=== PATIENT | male | born 1945 | race Caucasian/White ===

== ENCOUNTER 2016-11-19 07:08 | Observation (INO) ==
--- NOTE | 2016-11-19 07:31 | Emergency Department Note ---
Disposition Clinical Impression: Chest pain, rule out acute myocardial infarction Disposition: Admitted As Inpatient Condition: Fair Referrals: Lazaro Pérez DO [Primary Care Provider] - Forms: ED Satisfaction Letter General Adult HPI - General Chief complaint: ED Dizziness Stated complaint: General, indegestion Time Seen by Provider: 11/19/16 07:15 Source: patient Limitations: no limitations - History of Present Illness HPI Narrative: 71-year-old male with history of coronary artery disease status post PCI in 2009 presents with chief complaint of indigestion of 2-3 days. Patient states that he is also had dizziness 3-4 times in the last week which is unusual for him. Patient states she becomes dizzy when standing up from a sitting position. He denies nausea, vomiting, diaphoresis, change in bowel or bladder function, shortness of breath, syncope. Furthermore he has a history of inferior WA in 2009 with placement of 4 stents in the RCA. He also had 30-40% stenosis in other coronary vessels. Patient takes aspirin carvedilol, metoprolol, and statin daily. During patient's last ACS his initial complaint was indigestion, and patient is worried that he might be having similar symptoms today. Pain Scale: 0 - Related Data Home Medications Medication Instructions Recorded Confirmed Aspirin [Lo-Dose Aspirin EC] 81 mg PO DAILY 11/19/16 11/19/16 Atorvastatin [Lipitor] 40 mg PO DAILY 11/19/16 11/19/16 Clopidogrel [Plavix] 75 mg PO DAILY 11/19/16 11/19/16 LORazepam [Ativan] 1 mg PO TID PRN 11/19/16 11/19/16 Metoprolol [Lopressor] 25 mg PO BID 11/19/16 11/19/16 Mometasone Furoate [Elocon] 1 appl TP BID 11/19/16 11/19/16 Oxycodone HCl/Acetaminophen 1 tab PO Q6H PRN 11/19/16 11/19/16 [Percocet 5-325 mg Tablet] PredniSONE [Deltasone] See Taper PO AD 11/19/16 11/19/16 Allergies Allergy/AdvReac Type Severity Reaction Status Date / Time No Known Allergies Allergy Verified 11/19/16 07:13 Review of Systems: Constitutional: Denies fever, chills HEENT: Denies headache, vision changes, neck pain, sore throat, rhinorrhea Heart: Denies chest pain palpitations Lungs: Denies shortness of breath cough Abdomen: Denies abdominal pain, reports indigestion, bloating. Denies nausea vomiting diarrhea Extremities: Denies swelling, pain Neuro: Denies numbness, and tingling Past Medical History - Past Medical History Medical history: Reports: hyperlipidemia, hypertension, myocardial infarction - Social History Smoking Status: Current every day smoker Alcohol use: Reports: none Drug use: Reports: none Physical Exam General: Alert and oriented to place time and situation. Without distress HEENT: Head atraumatic, normocephalic, EOMI, PERRLA, neck nontender to palpation , absent Lymphadenopathy, Moist Mucous Membranes, Heart: Regular rate and rhythm with no murmur Lungs: Upper lobe wheezing bilaterally. Abdomen: Soft nontender, nondistended positive bowel sounds Extremities: Absent pedal edema, Vascular: Pedal and radialpulses 2 out of 4 - General Limitations: no limitations General appearance: alert, in no apparent distress Course Course Narrative: Will obtain EKG, troponin, basic labs, chest x-ray. Orthostatic vitals. - Reevaluation(s) Reevaluation #1: Orthostatic vitals: Laying down HR 74 BP 164/80 Standing up HR 80 BP 166/74 Time: 07:48 Reevaluation #2: CBC, BMP within normal limits. Troponin negative. EKG sinus rhythm. Chest x- ray is negative for acute changes. Time: 08:33 Reevaluation #3: Decision was made to admit patient for chest pain rule out. We will contact hospitalist. Time: 09:40 Vital Signs Temperature 98.4 F 11/19/16 07:09 Pulse Rate 76 11/19/16 07:09 Respiratory Rate 18 11/19/16 07:09 Blood Pressure 160/88 11/19/16 07:09 O2 Sat by Pulse Oximetry 96 11/19/16 07:09 Temperature 98.4 F 11/19/16 07:09 Pulse Rate 66 11/19/16 09:09 Respiratory Rate 16 11/19/16 09:09 Blood Pressure 147/74 11/19/16 09:09 O2 Sat by Pulse Oximetry 95 11/19/16 09:09 Oxygen Delivery Oxygen Delivery Room Air Medical Decision Making - MDM Narrative Medical decision making narrative: Patient's past history of coronary artery disease, smoking, myocardial infarction he will be admitted for chest pain rule out. - Medical Records Medical records reviewed: Yes I reviewed the patient's medical records. - Lab Data Lab results reviewed: Yes I reviewed the patient's lab results. Result diagrams: 11/19/16 07:57 11/19/16 07:57 Lab Results 11/19/16 11/19/16 11/19/16 Range/Units 07:57 07:57 07:57 WBC 12.3 H (4.3-11.1) K/mcL RBC 5.08 (4.19-5.50) M/mcL Hgb 14.7 (12.9-16.9) g/dL Hct 44.8 (37.5-50.1) % MCV 88.2 (83.0-100.0) fL MCH 28.9 (28.0-33.3) pg MCHC 32.8 (31.6-35.5) g/dL RDW 13.9 (11.5-14.5) % Plt Count 213 (140-400) K/mcL MPV 10.0 (9.4-12.4) fL Immature Gran % 0.3 (0-4) % Seg Neutrophils % 72.5 % Lymphocytes % 16.5 % Monocytes % 8.4 % Eosinophils % 1.9 % Basophils % 0.4 % Neutrophils # 8.9 (1.6-8.9) K/mcL Lymphocytes # 2.0 (0.6-4.6) K/mcL Monocytes # 1.0 (0.0-1.3) K/mcL Eosinophils # 0.2 (0.0-0.6) K/mcL Basophils # 0.1 (0.0-0.2) K/mcL Immature Plt Fraction 5.6 (1.1-6.1) % Sodium 140 (136-145) mEq/L Potassium 4.3 (3.5-4.5) mEq/L Chloride 108 (98-109) mEq/L Carbon Dioxide 24 (19-29) mEq/L BUN 16 (8-26) mg/dL Creatinine 1.00 (0.72-1.25) mg/dL Est GFR ( Amer) > 60 (> 60) Est GFR (Non-Af Amer) > 60 (> 60) BUN/Creatinine Ratio 16 (6-26) Glucose 117 H (70-99) mg/dL Calculated Osmolality 292 (280-300) Calcium 9.6 (8.6-10.8) mg/dL Troponin I 0.00 (0-0.03) ng/mL - Radiology Data Radiology results reviewed: Yes I reviewed the patient's radiology results. - EKG Data EKG #1 EKG results narrative: Sinus with rate 72, no ST-T wave changes, Q-wave in lead 3, 2 and aVF. Sinus rhythm with old inferior WA. Attestation Statement - Attestation Attestation: I performed a history and physical examination of the patient and discussed his management with the resident. I reviewed the residents note and agree with the documented findings and plan of care. This is a 71-year-old male who was planning on a long drive to [place] today but decided to come to the hospital because he had some symptoms that he wanted checked out first. He described "dizziness ". He states he turned a bit too quickly to get out of bed and it came on and then it went away. So it sounds like this was very transient. It sounds like this is happened to him several times over the past week. He also describes what he calls "indigestion ". However he is concerned because he has a history of 4 stents placed approximately 7 years ago. He has not had a subsequent heart catheterization and no visits for chest pain. It is not clear whether the symptoms are exertional. His first troponin has come back negative. I see no new ischemic changes on his EKG. EKG interpreted by me showing sinus rhythm at a rate of 72, QRS of 111, QTC of 406, axis of 15. I discussed with the patient that in order to fully rule him out from a cardiac standpoint he will need a full set of cardiac enzymes. He has agreed to be admitted for this and this has been arranged to the hospitalist service. Lungs are clear, heart regular. See the resident note for further details this patient's care.
[2016-11-19 08:06] LABS: Hematocrit 44.8 % (37.5-50.1); Hemoglobin 14.7 g/dL (12.9-16.9); Immature Platelets 5.6 % (1.1-6.1); Mean Corpuscular HGB Conc 32.8 g/dL (31.6-35.5); Mean Corpuscular Hemoglobin 28.9 pg (28.0-33.3); Mean Corpuscular Volume 88.2 fL (83.0-100.0); Platelet Count 213 K/mcL (140-400); Red Blood Count 5.08 M/mcL (4.19-5.50); Red Cell Distribution Width 13.9 % (11.5-14.5); Segmented Neutrophils % 72.5 %
[2016-11-19 08:07] LABS: Basophils # 0.1 K/mcL (0.0-0.2); Basophils % 0.4 %; Eosinophils # 0.2 K/mcL (0.0-0.6); Eosinophils % 1.9 %; Immature Granulocytes % 0.3 % (0-4); Lymphocytes % 16.5 %; Monocytes % 8.4 %; Neutrophils # 8.9 K/mcL (1.6-8.9)
[2016-11-19 08:18] LABS: BUN/Creatinine Ratio 16 (6-26); Blood Urea Nitrogen 16 mg/dL (8-26); Calcium 9.6 mg/dL (8.6-10.8); Carbon Dioxide 24 mEq/L (19-29); Chloride 108 mEq/L (98-109); Glucose 117 mg/dL (70-99); Osmolality,Calculated 292 (280-300); Potassium 4.3 mEq/L (3.5-4.5); Sodium 140 mEq/L (136-145); eGFR For African Americans > 60 (> 60); eGFR For Non-African Americans > 60 (> 60)
[2016-11-19] MEDS ORDERED: Naloxone 0.4 MG/ML INJ IVP PRN (10:27)
[2016-11-19] MEDS ORDERED: Acetaminophen 325 MG TABLET PO PRN (10:27)
--- NOTE | 2016-11-19 10:43 | Internal Med History&Physical ---
Date of Encounter: 11/19/16 Time of Encounter: 10:00 Assessment and Plan (1) Chest pain Current visit: Yes Status: Acute Patient with the complaints of epigastric discomfort/atypical chest pain. Given his prior episode of similar complaints associated with his diagnosis of coronary artery disease requiring stenting, we will place patient in the hospital for observation. Trend troponins. Monitor with telemetry. Check lipid profile and A1c. We will treat symptomatically. Pain could also be related to gastritis . We will treat with PPI. If troponins are negative, plan for stress test in the morning. Qualifiers: Chest pain type: other chest pain Qualified Code(s): R07.89 - Other chest pain; R07.8 - Other chest pain (2) Essential hypertension Current visit: Yes Status: Chronic Uncontrolled. Monitor blood pressure. Resume home medications. (3) Hyperlipidemia Current visit: Yes Status: Chronic Continue statin. Check lipid profile. Qualifiers: Hyperlipidemia type: mixed hyperlipidemia Qualified Code(s): E78.2 - Mixed hyperlipidemia (4) Coronary artery disease Current visit: Yes Status: Chronic Continue aspirin, Plavix and beta carmela. Patient had 3 stents placed to the right coronary artery in 2009. At that time he also had 30% to 40% stenosis and left anterior descending and left circumflex artery with an EF of 50-60%. Qualifiers: Coronary Disease-Associated Artery/Lesion type: [place] artery [place] vs. transplanted heart: [place] heart Associated angina: with other forms of angina Qualified Code(s): I25.118 - Atherosclerotic heart disease of [place] coronary artery with other forms of angina pectoris Internal Medicine - H&P: HPI Chief complaint: Indigestion Admitted From: Emergency Dept Plans for Post Hospital Care: Home History of present illness: Mr. Stein is a 71 year old male patient with a history of coronary artery disease status post ACI with stents in 2009 presented to the ER with complaints of indigestion. His symptoms have been going on for about 2-3 days now. He has been otherwise healthy. The main concern is that he should not had indigestion since his last stents and during that time he had presented with complaint of indigestion and was diagnosed with coronary artery disease then. He denies any palpitations. He denies any relation of the symptoms to activity or food. He sometimes feels pain radiating down his left arm. No nausea or vomiting. He has recently been placed on a tapering course of steroids for back pain. No shortness of breath or pedal edema. No diarrhea Past Med Surg Social Fam HX - Past Medical History Attestation: Yes The following information was validated with the patient. Source: patient, old records reviewed Medical history: hyperlipidemia, hypertension, myocardial infarction - Social History Smoking Status: Current every day smoker Alcohol use: none Drug use: none - Additional Family History Additional family history: Reviewed and found to be noncontributory at this time Internal Medicine - H&P: Meds Aspirin [Lo-Dose Aspirin EC] 81 mg PO DAILY 11/19/16 [History] Atorvastatin [Lipitor] 40 mg PO DAILY 11/19/16 [History] Clopidogrel [Plavix] 75 mg PO DAILY 11/19/16 [History] LORazepam [Ativan] 1 mg PO TID PRN 11/19/16 [History] Metoprolol [Lopressor] 25 mg PO BID 11/19/16 [History] Mometasone Furoate [Elocon] 1 appl TP BID 11/19/16 [History] Oxycodone HCl/Acetaminophen [Percocet 5-325 mg Tablet] 1 tab PO Q6H PRN [History] PredniSONE [Deltasone] See Taper PO AD 11/19/16 [History] Allergies No Known Allergies Allergy (Verified 11/19/16 07:13) All Systems PM: A 10-system review of systems was performed and is negative for pertinent findings except as documented above in the HPI. - Constitutional Constitutional: no chills, no fever(s), no night sweats - EENT Eyes: no change in vision, no discharge, no pain, no photophobia Ears: no ear discharge, no ear pain, no tinnitus Nose, mouth and throat: no dysphagia, no nasal discharge, no neck pain, no sore throat - Cardiovascular Cardiovascular ROS IM: no chest pain, no diaphoresis, no dyspnea, no lightheadedness, no palpitations, no syncope - Respiratory Respiratory: no cough, no dyspnea, no wheezing, no excessive phlegm production - Gastrointestinal Gastrointestinal: dyspepsia, no abdominal pain, no diarrhea, no hematemesis, no hematochezia, no melena, no nausea, no vomiting - Musculoskeletal Musculoskeletal ROS IM: no numbness, no tingling - Integumentary Integumentary IM: no rash, no unusual bruising - Neurological Neurological ROS: no confusion, no convulsions, no focal weakness, no numbness, no tingling, no tremor(s) - Hematologic/Lymphatic Hematologic/Lymphatic: no easy bruising - Constitutional Vitals: Temp Pulse Resp BP Pulse Ox 98.4 F 66 16 147/74 95 11/19/16 07:09 11/19/16 09:09 11/19/16 09:09 11/19/16 09:09 11/19/16 09:09 General appearance: Present: cooperative, A&O X 3, pleasant, answers questions appropriately - Neck Neck exam general surgery: Present: supple, trachea midline. Absent: lymphadenopathy - Respiratory Respiratory exam: Present: CTAB. Absent: accessory muscle use, rales, rhonchi, wheezes - Cardiovascular Cardiovascular exam: Present: RRR, +S1, +S2. Absent: diastolic murmur, gallop, rubs, systolic murmur - GI/Abdominal GI/Abdominal exam: Present: normal bowel sounds, soft, no peritoneal signs. Absent: distended, tenderness - Extremities Exam Extremities exam: Present: warm, radial pulses palpable and symetrical. Absent : calf tenderness, cyanotic, pedal edema - Neurological Exam Neurological exam: Present: CN II-XII intact, oriented X3, no focal deficits. Absent: facial droop, speech deficit - Skin Skin exam: Present: dry, intact Internal Med - H&P Results - Labs CBC & Chem 7: 11/19/16 07:57 11/19/16 07:57 Labs: Short CBC 11/19/16 Range/Units 07:57 WBC 12.3 H (4.3-11.1) K/mcL Hgb 14.7 (12.9-16.9) g/dL Hct 44.8 (37.5-50.1) % Plt Count 213 (140-400) K/mcL Neutrophils # 8.9 (1.6-8.9) K/mcL BMP 11/19/16 07:57 Sodium 140 Potassium 4.3 Chloride 108 Carbon Dioxide 24 BUN 16 Creatinine 1.00 Glucose 117 H Calcium 9.6 Cardiac Enzymes 11/19/16 Range/Units 07:57 Troponin I 0.00 (0-0.03) ng/mL - EKG Data -: EKG Interpreted by Myself EKG shows normal: sinus rhythm - EKG Data EKG comments: 11/19/16 10:44 Inferior Q waves without any acute ST segment changes 11/19/16 10:44 - Impressions ITS Impressions Chest X-Ray 11/19/16 07:28 IMPRESSION: No acute cardiopulmonary disease. D/ / 11/19/2016 08:21:26 Riki Mckeon MD / vinod Interpreting Provider: Riki Mckeon MD - Attending Attestation This document has been at least partially created by [employer] recognition technology by Dr. Romero. Errors in grammar, wording or other phrases may exist. If errors are found after the documentation is signed, they will be addressed individually in the addendum section of this document when appropriate.
[2016-11-19] MEDS ORDERED: *HR* LORazepam 1 MG TABLET PO PRN (10:50)
[2016-11-19] MEDS ORDERED: *HR* OxyCODONE/APAP 5/325 TABLET PO PRN (10:50)
[2016-11-20 04:30] LABS: Hemoglobin A1C 5.8 %
[2016-11-20 04:38] LABS: Chol/HDL Ratio 3.9 (0-4.9)
--- NOTE | 2016-11-20 06:40 | Electrocardiograph Report ---
[facility] Test Date: 2016-11-19 Pat Name: Jesus Stein Department: 104 Room: 3B48 Gender: M Hydrologist: : 1945 Requested By: Tio Bejarano Order Number: [id number] Reading MD: Kolton Damico DO Measurements Intervals [place] Rate: 72 P: 55 TX: 194 QRS: 15 QRSD: 111 T: 36 QT: 382 QTc: 406 Interpretive Statements SINUS RHYTHM MODERATE INTRAVENTRICULAR CONDUCTION DELAY Electronically Signed On 11-20-2016 6:38:44 EDT by Kolton Damico DO
[2016-11-20] MEDS ORDERED: Regadenoson 0.4 MG/5 ML SYRINGE IVP ONE (07:07)
[2016-11-20 07:14] VITALS: BP 141/87
[2016-11-20] MEDS ORDERED: Aspirin Enteric Coated 81 MG Tablet PO SCH (09:00)
--- NOTE | 2016-11-20 10:13 | Nuclear Medicine Stress Report ---
Low Level Regadenoson Name: Jesus Stein Date of Study: 11/20/2016 Date: 1945 Ht: 74.0 in Medical Record#: [id number] Age: 71 Wt: 195.0 lb Gender: Male Order #: [id number] Location: [facility] Room: [facility] Supervising Provider: Jyocelyn Sandoval CNP Reading Physician: Arben Britt DO, FAC, [facility] Ordering Physician: Juan Manuel Romero MD Primary Care Physician: Farhan Pérez DO Stress Technologist: Kari Grant RRT,CPFT Cardiac Rn: Cresencio Mackenzie Indications: Coronary Artery Disease, Chest Pain Impression: Low level exercise/ pharmacologic stress ECG is negative for ischemia at level of heart rate achieved. Gated EF = 67%. Medium sized, mild intensity, fixed basal to mid inferior and inferolateral defect. Wall motion appears normal. These findings are suggestive of artifact. Perfusion imaging was negative for ischemia. History: Hypertension Hypercholesteremia History of Smoking Prior PCI Stress Test Summary: Stress Test Type: Low level pharmacologic Regadenoson 0.4mg/5ml given IV Baseline Information: Initial Heart Rate: 95 Blood Pressure: 112/62 Stress Information: Stress Time: min 00 sec Test Terminated Due to (primary): As per protocol Maximum Blood Pressure: 140/60 Maximum Heart Rate: 115 Percent Maximum Heart Rate Achieved: 76 Double Product: [id number] METS Reached: 2.1 Symptoms: Shortness of breath Nuclear Summary: SPECT myocardial perfusion imaging using Tc99m Sestamibi given intravenously was performed at rest and following cardiac stress testing. The resting images were obtained following initial dose of 10.7 mCi. Following stress an additional dose of 32.7 mCi was given at peak exercise or 30 seconds post regadenoson infusion. Medication Given: Time Medication Dose Units Route Findings: Stress Note * Resting ECG demonstrated normal sinus rhythm. * No baseline arrhythmias were noted. * Low level exercise/ pharmacologic stress ECG is negative for ischemia at level of heart rate achieved. * No chest pain or arrhythmias during stress. Hemodynamic responses * Normal hemodynamic responses to low level exercise plus pharmacologic stress. Study Quality * Study quality is average. Gated EF % * Gated EF = 67%. Left Ventricle * The left ventricle is not dilated. * LVEDV = 83 mL. NORMALS * Normal wall motion. Inferior Perfusion Rest * The basal to mid inferior and inferolateral segments show a mild reduction in perfusion. Inferior Perfusion Stress * The basal to mid inferior and inferolateral segments show a mild reduction in perfusion. TID * No evidence of transient ischemic dilatation. TID ratio * TID ratio = 0.83. Lung Uptake * There is no evidence of increase lung uptake. Updated by Arben Britt DO, FACLindsey, ROBERTH, CHANDNI on 11/20/2016 10:02:56 AM electronically signed on 11/20/2016 10:07:10 AM with status of Final
--- NOTE | 2016-11-20 11:00 | Discharge Summary ---
Date of Encounter: 11/20/16 Time of Encounter: 10:58 - Discharge Diagnosis (1) Chest pain Priority: Primary Status: Acute Qualifiers: Chest pain type: other chest pain Qualified Code(s): R07.89 - Other chest pain; R07.8 - Other chest pain (2) Essential hypertension Priority: Secondary Status: Chronic (3) Hyperlipidemia Priority: Secondary Status: Chronic Qualifiers: Hyperlipidemia type: mixed hyperlipidemia Qualified Code(s): E78.2 - Mixed hyperlipidemia (4) Coronary artery disease Priority: Secondary Status: Chronic Qualifiers: Coronary Disease-Associated Artery/Lesion type: [place] artery [place] vs. transplanted heart: [place] heart Associated angina: with other forms of angina Qualified Code(s): I25.118 - Atherosclerotic heart disease of [place] coronary artery with other forms of angina pectoris - Discharge Medications Prescriptions: Lisinopril [Zestril] 5 mg PO DAILY #30 tablet Pantoprazole Sodium [Protonix] 20 mg PO DAILY #30 tab Home Medications: Aspirin [Lo-Dose Aspirin EC] 81 mg PO DAILY 11/19/16 [History] Atorvastatin [Lipitor] 40 mg PO DAILY 11/19/16 [History] Clopidogrel [Plavix] 75 mg PO DAILY 11/19/16 [History] LORazepam [Ativan] 1 mg PO TID PRN 11/19/16 [History] Metoprolol [Lopressor] 25 mg PO BID 11/19/16 [History] Mometasone Furoate [Elocon] 1 appl TP BID 11/19/16 [History] Oxycodone HCl/Acetaminophen [Percocet 5-325 mg Tablet] 1 tab PO Q6H PRN [History] PredniSONE [Deltasone] See Taper PO AD 11/19/16 [History] Lisinopril [Zestril] 5 mg PO DAILY #30 tablet 11/20/16 [Rx] Pantoprazole Sodium [Protonix] 20 mg PO DAILY #30 tab 11/20/16 [Rx] Allergies/Adverse Reactions: Allergies No Known Allergies Allergy (Verified 11/19/16 07:13) Date of admission: 11/19/16 11:24 Primary care physician: Lazaro Pérez, Discharging clinician: Juan Manuel Romero Anticipated date of discharge: 11/20/16 - Patient Status Disposition: Home, Self-Care Condition: Good Functional capacity at discharge: independent ambulation Overall status at discharge: patient is progressing back to baseline - Discharge Instructions Instructions: Chest Pain (DC), Pharmacologic Stress Testing (DC), Chronic Hypertension (DC) Follow Up With: Lazaro Pérez DO [Primary Care Provider] - 11/29/16 9:30 am - Diet and Activity Activity: increase activity as tolerated Diet: low fat, low cholesterol, low salt diet Hospital course: Mr. Stein is a 71 year old male patient with a history of coronary artery disease status post PCI with stents was observed here after presenting with complaints of indigestion which was similar in nature to that time he had his previous stents. He had been on prednisone recently for back pain. His pain was treated in the ER and since then his feeling much better. He was monitored with telemetry and underwent cardiac stress test today. His EKG did not show any acute ST segment changes. His stress test did not show any reversible ischemia. There was a medium-sized mild intensity fixed basal to mid inferior and inferior lateral fixed defect which was likely an artifact. Patient had an EF of 62%. Patient has been having elevated blood pressure intermittently during his stay here. As such he will be started on lisinopril. Most likely his chest pain could be related to gastric inflammation related to recent prednisone use. We will start him on a short course of PPI. He will follow up with his primary care provider for further management. He is stable for discharge at this time. - Time Spent with Patient Total time spent providing and/or coordinating discharge services: Less than 30 minutes (25 min) - Constitutional Vitals: Temp Pulse Resp BP Pulse Ox 98.4 F 76 16 141/87 93 11/20/16 07:13 11/20/16 07:13 11/20/16 07:13 11/20/16 07:13 11/20/16 07:13 General appearance: Present: cooperative, A&O X 3, pleasant, answers questions appropriately - Respiratory Respiratory exam: Present: CTAB. Absent: accessory muscle use, rales, rhonchi, wheezes - Cardiovascular Cardiovascular exam: Present: RRR, +S1, +S2. Absent: diastolic murmur, gallop, rubs, systolic murmur - GI/Abdominal GI/Abdominal exam: Present: normal bowel sounds, soft, no peritoneal signs. Absent: distended, tenderness - Extremities Exam Extremities exam: Present: warm, radial pulses palpable and symetrical. Absent : calf tenderness, cyanotic, pedal edema - Attending Attestation This document has been at least partially created by [employer] recognition technology by Dr. Romero. Errors in grammar, wording or other phrases may exist. If errors are found after the documentation is signed, they will be addressed individually in the addendum section of this document when appropriate.
== END 2016-11-20 12:10 | disposition home or self-care (01) ==
LOC: EMEROO 07:08 → 3BNU 07:08 → SUATTDRO 11:24 → 3BNU 11:40
PROVIDERS: ADMIT Internal Medicine; ATTEND Internal Medicine